=== PATIENT | male | born 1960 | race Two or more races ===

== ENCOUNTER 2025-04-10 09:59 | Inpatient (IN) | payer OTHER ==
[~2025-04-10] VITALS: Ht 172.7 cm; Wt 108.9 kg
--- NOTE | 2025-04-10 12:12 | NUR ---
PACIENTE MASCULINO, C/C [place]GR[place] RECTAL, SE UBICA EN OBSERVACION EN ESPERA SER EVALUAO.
[2025-04-10] MEDS ORDERED: 0.9 % SODIUM CHLORIDE 1,000 ML IV SCH (12:30)
[2025-04-10] MEDS ORDERED: FAMOTIDINE/PF 20 MG/2 ML VIAL IV PUSH ONE (12:30)
[2025-04-10] MEDS ORDERED: FAMOtidine 40 MG in 0.9 % SODIUM CHLORIDE 8 ML IV PUSH ONE (12:30)
[2025-04-10] MEDS ORDERED: PANTOPRAZOLE SODIUM 40 MG/VIAL VIAL IV PUSH ONE (12:45)
[2025-04-10] MEDS ORDERED: ONDANSETRON HCL 2 MG/ML VIAL IV ONE (12:45)
[2025-04-10] MEDS ORDERED: ONDANSETRON HCL 2 MG/ML VIAL ONE (13:16)
--- NOTE | 2025-04-10 13:55 | NUR ---
SE ORIENTA PTE SOBRE TX, REFIERE ENTENDER Y ACEPTAR. SE POONAM MUESTRAS DE LABORATORIO, SE CANALIZA Y SE COLOCAN MEDICAMENTOS.
[2025-04-10 14:04] LABS: BASO % 0.5 % (0.1-1.2); EOS # 0.06 (0.04-0.54); EOS % 0.8 % (0.7-7.0); LYMPH # 1.48 (1.18-3.74); LYMPH % 20.2 % (19.3-53.1); MONO # 0.55 (0.24-0.82); MONO % 7.5 % (4.7-12.5); NEUT # 5.17 (1.56-6.13); NEUT % 70.7 % (34.0-71.1)
[2025-04-10 14:15] LABS: RED CELL DISTRIBUTION WIDTH 30.2 % (11.6-14.4)
[2025-04-10 14:16] LABS: URINE APPEARANCE Clear; URINE BILIRRUBIN Negative (NEGATIVE); URINE BLOOD Negative; URINE COLOR Yellow; URINE GLUCOSE Negative (NEGATIVE); URINE KETONE Negative (NEGATIVE); URINE LEUKOCYTE Negative; URINE NITRATE Negative; URINE PROTEIN Negative (NEGATIVE); URINE UROBILINOGEN 0.2 E.U./dl
[2025-04-10 14:17] LABS: URINE BACTERIA 5.7 uL (0.0-1933)
[2025-04-10 14:23] LABS: ALT/SGPT 17.0 U/L (12-78); AST/SGOT 14.0 U/L (15-37); BILIRUBIN TOTAL 0.31 mg/dL (0.3-1.2); BUN CREA RATIO 30.0 (7.0-25.0); CREATININE SERUM 0.8 mg/dL (0.70-1.30); GFR 97.02; GLOBULINA 3.9 G/DL (2.4-3.5); GLUCOSE FASTING 123.0 mg/dL (65-100); OSMOLALITY SERUM 283.0 MOSM/KG (275-295)
[2025-04-10 14:25] LABS: INR 1.03
[2025-04-10 14:25] LABS: URINE CAST 0.00 uL (0.0-1.40); URINE EPITHELIAL CELLS 0.6 uL (0.0-38.8); URINE RBC 0.1 uL (0.0-20.8); URINE WBC 0 uL (0.0-23.2)
[2025-04-10 14:46] LABS: EOSINOPHIL MAN 1.0 %; LYMPHOCYTE MAN 19.0 %; MONOCYTE MAN 5.0 %; NEUTROPHILS MAN 75.0 %
[2025-04-10] MEDS ORDERED: PEG3350/SOD SULF,BICARB,CL/KCL 4,000 ML GALLON PO ONE (18:30)
[2025-04-10 19:02] VITALS: BP 130/80
[2025-04-11] VITALS: BP 143/70; O2SAT 98
[2025-04-11 05:03] LABS: ob POSITIVE (NEGATIVE)
[2025-04-11 07:30] VITALS: BP 178/75; O2SAT 97
[2025-04-11] MEDS ORDERED: ENALAPRILAT DIHYDRATE 1.25 MG/ML VIAL IV NR (09:45)
[2025-04-11] MEDS ORDERED: METOPROLOL TARTRATE 25 MG TABLET PO NR (12:00)
[2025-04-11] MEDS ORDERED: LOSARTAN POTASSIUM 100 MG TABLET PO NR (12:00)
[2025-04-11] MEDS ORDERED: DIPHENHYDRAMINE HCL 50 MG/ML VIAL 1ML IV ONE (16:15)
[2025-04-11] MEDS ORDERED: MIDAZOLAM HCL 2 MG/2 ML VIAL IV ONE (16:15)
[2025-04-11] MEDS ORDERED: fentaNYL CITRATE 50 MCG/ML AMPUL IV PUSH ONE (16:15)
[2025-04-11 16:57] VITALS: BP 132/72; O2SAT 99
[2025-04-11] MEDS ORDERED: DIATRIZOATE MEGLUMINE, SODIUM 30 ML BOTTLE PO NR (18:15)
[2025-04-12 00:43] VITALS: BP 131/69; O2SAT 99
[2025-04-12] MEDS ORDERED: DIATRIZOATE MEGLUMINE, SODIUM 30 ML BOTTLE PO NR (04:00)
[2025-04-12 08:00] VITALS: BP 180/78; O2SAT 99
[2025-04-12] MEDS ORDERED: LOSARTAN POTASSIUM 100 MG TABLET PO SCH (09:00)
[2025-04-12] MEDS ORDERED: METOPROLOL TARTRATE 25 MG TABLET PO SCH (09:00)
[2025-04-12 16:00] VITALS: BP 181/85; O2SAT 100
[2025-04-13] VITALS (7 sets, daily range): BP systolic 138–216; BP diastolic 67–92; O2SAT 98–99
[2025-04-13 07:02] LABS: BASO % 0.5 % (0.1-1.2); EOS # 0.04 (0.04-0.54); EOS % 0.7 % (0.7-7.0); LYMPH # 1.23 (1.18-3.74); LYMPH % 21.5 % (19.3-53.1); MONO # 0.53 (0.24-0.82); MONO % 9.3 % (4.7-12.5); NEUT # 3.88 (1.56-6.13); NEUT % 68.0 % (34.0-71.1)
[2025-04-13 07:23] LABS: BUN CREA RATIO 15.0 (7.0-25.0); CREATININE SERUM 0.75 mg/dL (0.70-1.30); GFR 104.52; GLUCOSE FASTING 143.0 mg/dL (65-100); OSMOLALITY SERUM 283.0 MOSM/KG (275-295)
[2025-04-13 07:33] LABS: RED CELL DISTRIBUTION WIDTH 29.7 % (11.6-14.4)
[2025-04-13] MEDS ORDERED: ENALAPRILAT DIHYDRATE 1.25 MG/ML VIAL IV STA (07:35)
[2025-04-13] MEDS ORDERED: ENALAPRILAT DIHYDRATE 1.25 MG/ML VIAL IV ONE (07:53)
[2025-04-13] MEDS ORDERED: PIPERACILLIN/TAZOBACTAM SODIUM 3.375 GM VIAL IV SCH (08:45)
[2025-04-13] MEDS ORDERED: PEG3350/SOD SULF,BICARB,CL/KCL 4,000 ML GALLON PO NR (17:00)
[2025-04-13] MEDS ORDERED: SOD FERRIC GLUC COMPLX/SUCROSE 62.5 MG in 0.9 % SODIUM CHLORIDE 50 ML IV SCH (17:00)
[2025-04-13] MEDS ORDERED: ENALAPRILAT DIHYDRATE 2.5 MG/2 ML VIAL IV SCH (21:19)
[2025-04-14] MEDS ORDERED: DILTIAZEM HCL 125 MG in 0.9 % SODIUM CHLORIDE 100 ML IV SCH (02:15)
[2025-04-14] MEDS ORDERED: DILTIAZEM HCL 125MG/25ML VIAL IV ONE (02:17)
[2025-04-14] MEDS ORDERED: ENALAPRILAT DIHYDRATE 1.25 MG/ML VIAL IV PRN (08:00)
[2025-04-14 08:31] VITALS: BP 170/71; O2SAT 98
[2025-04-14] MEDS ORDERED: AMLODIPINE BESYLATE 5 MG TABLET PO SCH (09:00)
[2025-04-14] MEDS ORDERED: AMLODIPINE BESYLATE 10 MG TABLET PO SCH (09:00)
[2025-04-14 16:00] VITALS: BP 160/69; O2SAT 98
[2025-04-14 17:23] VITALS: BP 160/69; O2SAT 98
[2025-04-14 21:00] VITALS: BP 149/68
[2025-04-14] MEDS ORDERED: FAMOTIDINE/PF 20 MG in 0.9 % SODIUM CHLORIDE 100 ML IV SCH (21:00)
[2025-04-14 21:53] VITALS: O2SAT 97
[2025-04-15] VITALS (9 sets, daily range): BP systolic 98–158; BP diastolic 63–71; O2SAT 90–99
[2025-04-15 08:07] LABS: ALT/SGPT 15.0 U/L (12-78); AST/SGOT 11.0 U/L (15-37); BILIRUBIN TOTAL 0.48 mg/dL (0.3-1.2); BUN CREA RATIO 13.0 (7.0-25.0); CREATININE SERUM 1.15 mg/dL (0.70-1.30); GFR 63.82; GLOBULINA 3.3 G/DL (2.4-3.5); GLUCOSE FASTING 188.0 mg/dL (65-100); OSMOLALITY SERUM 291.0 MOSM/KG (275-295)
[2025-04-15 08:12] LABS: BASO % 0.7 % (0.1-1.2); EOS # 0.04 (0.04-0.54); EOS % 0.7 % (0.7-7.0); LYMPH # 1.15 (1.18-3.74); LYMPH % 18.9 % (19.3-53.1); MONO # 0.63 (0.24-0.82); MONO % 10.4 % (4.7-12.5); NEUT # 4.21 (1.56-6.13); NEUT % 69.1 % (34.0-71.1)
[2025-04-15 08:14] LABS: RED CELL DISTRIBUTION WIDTH 30.1 % (11.6-14.4)
[2025-04-15] MEDS ORDERED: METOPROLOL TARTRATE 50 MG TABLET PO SCH ×2 (09:00)
[2025-04-15] MEDS ORDERED: ENOXAPARIN SODIUM 40 MG/0.4 ML SYRINGE SUBCUTANEO SCH (09:00)
[2025-04-15] MEDS ORDERED: INSULIN LISPRO 1,000 UNIT/10 ML UNITS SUBCUTANEO PRN (12:15)
[2025-04-15] MEDS ORDERED: DEXTROSE 50 % IN WATER 0.5 G/ML DISP.SYRIN IV PRN (12:15)
[2025-04-15] MEDS ORDERED: INSULIN GLARGINE,HUM.REC.ANLOG 1,000 UNITS/10 ML UNITS SUBCUTANEO SCH (17:00)
[2025-04-15] MEDS ORDERED: POLYETHYLENE GLYCOL 3350 238 GM POWDER PO ONE (19:15)
[2025-04-15] MEDS ORDERED: LABETALOL HCL 100 MG/20 ML ML ONE (22:46)
[2025-04-15] MEDS ORDERED: LABETALOL HCL 20MG/4ML SYRINGE IV ONE (23:00)
[2025-04-16] VITALS (8 sets, daily range): BP systolic 130–147; BP diastolic 62–75; O2SAT 95–99
[2025-04-16] MEDS ORDERED: BUPIVACAINE HCL/MPF 0.5% 30ML VIAL ONE (07:14)
[2025-04-16] MEDS ORDERED: LIDOCAINE HCL 1%/EPINEPHRINE 20ML VIAL IJ ONE (07:15)
[2025-04-16] MEDS ORDERED: CEFTRIAXONE SODIUM 2,000 MG VIAL ONE (07:16)
[2025-04-16] MEDS ORDERED: METRONIDAZOLE/SODIUM CHLORIDE 500 MG/100 ML PIGGYBACK IV ONE (07:16)
[2025-04-16 07:50] LABS: BASO % 0.5 % (0.1-1.2); EOS # 0.05 (0.04-0.54); EOS % 0.7 % (0.7-7.0); LYMPH # 1.31 (1.18-3.74); LYMPH % 17.8 % (19.3-53.1); MONO # 0.55 (0.24-0.82); MONO % 7.5 % (4.7-12.5); NEUT # 5.39 (1.56-6.13); NEUT % 73.1 % (34.0-71.1)
[2025-04-16 08:01] LABS: RED CELL DISTRIBUTION WIDTH 29.4 % (11.6-14.4)
[2025-04-16 08:10] LABS: BUN CREA RATIO 16.0 (7.0-25.0); CREATININE SERUM 0.87 mg/dL (0.70-1.30); GFR 88.06; GLUCOSE FASTING 180.0 mg/dL (65-100); OSMOLALITY SERUM 283.0 MOSM/KG (275-295)
[2025-04-16] MEDS ORDERED: SUGAMMADEX SODIUM 200 MG/2 ML VIAL IV ONE (08:58)
[2025-04-16] MEDS ORDERED: ONDANSETRON HCL 2 MG/ML VIAL IV PRN (09:30)
[2025-04-16] MEDS ORDERED: DEXTROSE 50 % IN WATER 0.5 G/ML DISP.SYRIN IV PRN (09:30)
[2025-04-16] MEDS ORDERED: MORPHINE SULFATE 4 MG/ML VIAL IV PRN (09:30)
[2025-04-16] MEDS ORDERED: OxyCODONE HCL 5 MG TABLET (ROXICODONE) PO PRN (09:30)
[2025-04-16] MEDS ORDERED: RINGERS SOLUTION,LACTATED 1,000 ML IV SCH (09:30)
[2025-04-16 11:22] LABS: BASO % 0.3 % (0.1-1.2); EOS # 0.03 (0.04-0.54); EOS % 0.2 % (0.7-7.0); LYMPH # 1.32 (1.18-3.74); LYMPH % 7.6 % (19.3-53.1); MONO # 0.82 (0.24-0.82); MONO % 4.7 % (4.7-12.5); NEUT # 15.06 (1.56-6.13); NEUT % 86.9 % (34.0-71.1)
[2025-04-16 11:43] LABS: RED CELL DISTRIBUTION WIDTH 29.6 % (11.6-14.4)
[2025-04-16 12:06] LABS: BUN CREA RATIO 13.0 (7.0-25.0); CREATININE SERUM 1.1 mg/dL (0.70-1.30); GFR 67.18; OSMOLALITY SERUM 287.0 MOSM/KG (275-295)
[2025-04-16 12:08] LABS: GLUCOSE FASTING 227.0 mg/dL (65-100)
[2025-04-16] MEDS ORDERED: ACETAMINOPHEN 500 MG GEL..CAP PO SCH (14:00)
[2025-04-16] MEDS ORDERED: GABAPENTIN 300 MG CAPSULE PO SCH (17:00)
[2025-04-16] MEDS ORDERED: FAMOTIDINE/PF 20 MG/2 ML VIAL IV PUSH SCH (21:00)
[2025-04-17] VITALS (9 sets, daily range): BP systolic 135–145; BP diastolic 66–76; O2SAT 95–100
[2025-04-17 06:25] LABS: BASO % 0.3 % (0.1-1.2); EOS # 0.01 (0.04-0.54); EOS % 0.1 % (0.7-7.0); LYMPH # 1.14 (1.18-3.74); LYMPH % 14.6 % (19.3-53.1); MONO # 0.70 (0.24-0.82); MONO % 9.0 % (4.7-12.5); NEUT # 5.91 (1.56-6.13); NEUT % 75.6 % (34.0-71.1)
[2025-04-17 06:43] LABS: RED CELL DISTRIBUTION WIDTH 29.2 % (11.6-14.4)
[2025-04-17 07:07] LABS: BUN CREA RATIO 11.0 (7.0-25.0); CREATININE SERUM 0.79 mg/dL (0.70-1.30); GFR 98.43; GLUCOSE FASTING 133.0 mg/dL (65-100); OSMOLALITY SERUM 280.0 MOSM/KG (275-295); T4 TOTAL 8.4 UG/DL (4.5-12.1); TSH 1.01 uIU/mL (0.358-3.74)
[2025-04-17] MEDS ORDERED: ENOXAPARIN SODIUM 40 MG/0.4 ML SYRINGE SUBCUTANEO SCH (17:00)
[2025-04-18] VITALS (8 sets, daily range): BP systolic 138–188; BP diastolic 75–81; O2SAT 93–98
[2025-04-18] MEDS ORDERED: ENOXAPARIN SODIUM 40 MG/0.4 ML SYRINGE SUBCUTANEO SCH (09:00)
[2025-04-19] VITALS (9 sets, daily range): BP systolic 136–155; BP diastolic 72–79; O2SAT 96–98
[2025-04-19] MEDS ORDERED: PANTOPRAZOLE SODIUM 40 MG/VIAL VIAL IV PUSH SCH (08:24)
[2025-04-19 12:33] LABS: BASO % 0.3 % (0.1-1.2); EOS # 0.03 (0.04-0.54); EOS % 0.2 % (0.7-7.0); LYMPH # 0.79 (1.18-3.74); LYMPH % 6.5 % (19.3-53.1); MONO # 0.76 (0.24-0.82); MONO % 6.3 % (4.7-12.5); NEUT # 10.50 (1.56-6.13); NEUT % 86.4 % (34.0-71.1)
[2025-04-19 12:34] LABS: RED CELL DISTRIBUTION WIDTH 29.7 % (11.6-14.4)
[2025-04-19 13:13] LABS: BUN CREA RATIO 14.0 (7.0-25.0); CREATININE SERUM 0.78 mg/dL (0.70-1.30); GFR 99.89; GLUCOSE FASTING 176.0 mg/dL (65-100); OSMOLALITY SERUM 278.0 MOSM/KG (275-295)
[2025-04-19] MEDS ORDERED: AMINO ACIDS 1 EACH TABLET PO SCH (17:00)
[2025-04-20] VITALS (10 sets, daily range): BP systolic 142–148; BP diastolic 75–83; O2SAT 90–98
[2025-04-20 06:59] LABS: BASO % 0.2 % (0.1-1.2); EOS # 0.13 (0.04-0.54); EOS % 1.4 % (0.7-7.0); LYMPH # 1.16 (1.18-3.74); LYMPH % 12.9 % (19.3-53.1); MONO # 0.96 (0.24-0.82); MONO % 10.6 % (4.7-12.5); NEUT # 6.74 (1.56-6.13); NEUT % 74.8 % (34.0-71.1)
[2025-04-20 07:21] LABS: RED CELL DISTRIBUTION WIDTH 29.9 % (11.6-14.4)
[2025-04-20] MEDS ORDERED: PANTOPRAZOLE SODIUM 40 MG/VIAL VIAL IV PUSH SCH (09:00)
[2025-04-21] VITALS (8 sets, daily range): BP systolic 93–140; BP diastolic 56–73; O2SAT 95–99
[2025-04-21] MEDS ORDERED: NORVASC10 MG PO (09:21)
[2025-04-21] MEDS ORDERED: TOPROL XL50 M1 PO (09:21)
[2025-04-21] MEDS ORDERED: COZAAR100 MG PO (09:21)
[2025-04-21] MEDS ORDERED: METOPROLOL SUCC50 MG PO (09:24)
[2025-04-21] MEDS ORDERED: METOPROLOL TARTRATE 50 MG TABLET PO SCH (21:00)
[2025-04-22] VITALS: BP 134/73; O2SAT 93; O2SAT 95; O2SAT 99
[2025-04-22 08:00] VITALS: BP 144/68; O2SAT 99
[2025-04-22 09:21] VITALS: O2SAT 97
[2025-04-23] MEDS ORDERED: PANTOPRAZOLE SODIUM 40 MG TABLET.DR PO SCH (09:00)
== END 2025-04-22 13:50 | disposition home or self-care (01) | DRG 330 ==
LOC: ER 10:00 → SURH 18:30
PROVIDERS: General Practice; Internal Medicine; Internal Medicine Geriatric Medicine; ADMIT Surgery; ATTEND Surgery
PROC: 0DBK8ZZ Excision of Ascending Colon, Via Natural or Artificial Opening Endoscopic (ICD-10-PCS; 2025-04-11)
PROC: 0DBL8ZZ Excision of Transverse Colon, Via Natural or Artificial Opening Endoscopic (ICD-10-PCS; 2025-04-11)
PROC: 3E0H8GC Introduction of Other Therapeutic Substance into Lower GI, Via Natural or Artificial Opening Endoscopic (ICD-10-PCS; 2025-04-11)
PROC: BW21YZZ Computerized Tomography (CT Scan) of Abdomen and Pelvis using Other Contrast (ICD-10-PCS; 2025-04-12)
PROC: BB24Y0Z Computerized Tomography (CT Scan) of Bilateral Lungs using Other Contrast, Unenhanced and Enhanced (ICD-10-PCS; 2025-04-12)
PROC: B246ZZZ Ultrasonography of Right and Left Heart (ICD-10-PCS; 2025-04-13)
PROC: 4A12X4Z Monitoring of Cardiac Electrical Activity, External Approach (ICD-10-PCS; 2025-04-14)
PROC: 07BB4ZZ Excision of Mesenteric Lymphatic, Percutaneous Endoscopic Approach (ICD-10-PCS; 2025-04-16)
PROC: 30233N1 Transfusion of Nonautologous Red Blood Cells into Peripheral Vein, Percutaneous Approach (ICD-10-PCS; 2025-04-16)
PROC: 0DTF4ZZ Resection of Right Large Intestine, Percutaneous Endoscopic Approach (ICD-10-PCS; principal; 2025-04-16 07:30)
DX: C18.2 Malignant neoplasm of ascending colon (principal); K62.5 Hemorrhage of anus and rectum; I10 Essential (primary) hypertension; R00.0 Tachycardia, unspecified; E11.65 Type 2 diabetes mellitus with hyperglycemia; Z79.4 Long term (current) use of insulin; I48.91 Unspecified atrial fibrillation